=== PATIENT | male | born 1960 | race Caucasian/White ===

== ENCOUNTER 2016-08-01 10:46 | Emergency (ER) | payer BC ==
[2016-08-01 12:02] VITALS: BP 144/94
--- NOTE | 2016-08-01 12:26 | UC ---
Throat Pain/Nasal Scott HPI - HPI Summary HPI Summary: sinus pain and pressure x 2 weeks, + nasal congestion, pnd, cough no fever, no chills - History of Current Complaint Chief Complaint: UCGeneralIllness Stated Complaint: SORE THROAT Time Seen by Provider: 08/01/16 12:19 Hx Obtained From: Patient Onset/Duration: Gradual Onset, Lasting Weeks - 2, Still Present Severity: Moderate Cough: Nonproductive Associated Signs & Symptoms: Positive: Sinus Discomfort, Nasal Discharge. Negative: Dysphagia, FB Sensation, Drooling, Wheezing, Hoarseness, Fever, Rash - Allergies/Home Medications Allergies/Adverse Reactions: Allergies Allergy/AdvReac Type Severity Reaction Status Date / Time No Known Allergies Allergy Verified 05/04/15 15:42 PMH/Surg Hx/FS Hx/Imm Hx Endocrine History Of: Denies: Diabetes, Thyroid Disease Cardiovascular History Of: Denies: Cardiac Disorders, Hypertension Respiratory History Of: Denies: COPD, Asthma GI/ History Of: Denies: Ulcer - Surgical History Surgical History: Yes Surgery Procedure, Year, and Place: hip replacement right , tonsillectomy - Family History Known Family History: Negative: Diabetes - Social History Alcohol Use: Occasionally Substance Use Type: None Smoking Status (MU): Former Smoker Type: Smokeless Tobacco - Immunization History Most Recent Influenza Vaccination: fall Review of Systems Constitutional: Negative Skin: Negative Eyes: Negative ENT: Sore Throat, Ear Ache, Nasal Discharge Respiratory: Cough Cardiovascular: Negative Gastrointestinal: Negative All Other Systems Reviewed And Are Negative: Yes Physical Exam Triage Information Reviewed: Yes Appearance: Well-Appearing, No Pain Distress, Well-Nourished Vital Signs: Initial Vital Signs Temp 98.3 F 08/01/16 11:54 Pulse 71 08/01/16 11:54 Resp 16 08/01/16 11:54 BP 144/94 08/01/16 11:54 Pulse Ox 98 08/01/16 11:54 Vital Signs Reviewed: Yes Eyes: Positive: Conjunctiva Clear ENT: Positive: Normal ENT inspection, Hearing grossly normal, Pharyngeal erythema, Nasal congestion, Nasal drainage, TMs normal Neck exam: Normal Neck: Positive: Supple, Nontender, No Lymphadenopathy Respiratory Exam: Normal Respiratory: Positive: Chest non-tender, Lungs clear, Normal breath sounds Cardiovascular: Positive: RRR, No Murmur, Pulses Normal Skin Exam: Normal Throat Pain/Nasal Course/Dx - Differential Dx/Diagnosis Provider Diagnoses: sinusitis Discharge - Discharge Plan Condition: Stable Disposition: HOME Prescriptions: Amoxicillin/Clavulanate TAB* [Augmentin TAB 875*] 875 mg PO BID #20 tab Patient Education Materials: Sinusitis (ED) Referrals: Macario Noguera MD [Primary Care Provider] - If Needed
== END 2016-08-01 12:30 | disposition home or self-care (01) ==
LOC: UCCORT 10:46
DX: J32.9 Chronic sinusitis, unspecified (principal); Z96.641 Presence of right artificial hip joint; Z87.891 Personal history of nicotine dependence
CPT/HCPCS: 99212; G0463

== ENCOUNTER 2016-11-24 10:32 | Emergency (ER) | payer BC ==
[2016-11-24 10:47] VITALS: BP 143/83
--- NOTE | 2016-11-24 11:01 | UC ---
Throat Pain/Nasal Scott HPI - HPI Summary HPI Summary: Patient presents to the urgent care c/o sore throat, bilateral ear pain, cough, and sinus pressure worsening over two weeks. Pt reports he has been taking Zyrtec and flonase nasal spray but symptoms are getting worse. He states now his nasal discharge is green and mild fever, since yesterday. Patient denies SOB, chest pain, dizziness, N/V/D. - History of Current Complaint Chief Complaint: UCRespiratory Stated Complaint: CONGESTION,SORE THROAT Time Seen by Provider: 11/24/16 10:45 Hx Obtained From: Patient Onset/Duration: Gradual Onset, Lasting Weeks, Still Present Severity: Moderate Pain Intensity: 0 Cough: Productive - due to postnasal drip Associated Signs & Symptoms: Positive: Dysphagia, Sinus Discomfort, Nasal Discharge - green discharge, Fever - mild. Negative: Wheezing, Vomiting, Rash Related History: Seasonal Allergies - Epiglottits Risk Factors Epiglottis Risk Factors: Negative - Allergies/Home Medications Allergies/Adverse Reactions: Allergies Allergy/AdvReac Type Severity Reaction Status Date / Time environmental Allergy Sneezing Uncoded 11/24/16 10:48 Home Medications: Home Medications Cetirizine* [ZyrTEC 10 MG TAB*] 10 mg PO DAILY 11/24/16 [History Confirmed 11/24] Fluticasone NASAL * [Flonase *] 2 spray BOTH NARES DAILY 11/24/16 [History Confirmed 11/24/16] PMH/Surg Hx/FS Hx/Imm Hx Previously Healthy: Yes - Surgical History Surgical History: Yes Surgery Procedure, Year, and Place: hip replacement right , tonsillectomy - Family History Known Family History: Negative: Cardiac Disease, Hypertension, Diabetes - Social History Occupation: Employed Full-time Alcohol Use: Occasionally Substance Use Type: None Smoking Status (MU): Never Smoked Tobacco Type: Smokeless Tobacco - Immunization History Most Recent Influenza Vaccination: 2013 fall Review of Systems Constitutional: Fever - mild at home Skin: Negative Eyes: Negative ENT: Sore Throat, Ear Ache - due to pressure, Nasal Discharge - green Respiratory: Cough - with green phlegm Cardiovascular: Negative Gastrointestinal: Negative Genitourinary: Negative Motor: Negative Neurovascular: Negative Musculoskeletal: Negative Neurological: Negative Psychological: Negative All Other Systems Reviewed And Are Negative: Yes Physical Exam Triage Information Reviewed: Yes Appearance: Well-Appearing, No Pain Distress, Well-Nourished, Obese Vital Signs: Initial Vital Signs Temp 98.2 F 11/24/16 10:43 Pulse 72 11/24/16 10:43 Resp 14 11/24/16 10:43 BP 143/83 11/24/16 10:43 Pulse Ox 98 11/24/16 10:43 Vital Signs Reviewed: Yes Eye Exam: Normal Eyes: Positive: Conjunctiva Clear ENT: Positive: Hearing grossly normal, Pharyngeal erythema, Nasal congestion, Nasal drainage - mild septum deviation with erythematous turbinates with green nasal discharge, TMs normal, Tonsillar swelling. Negative: Tonsillar exudate Dental Exam: Normal Neck exam: Normal Neck: Positive: Supple, Nontender, No Lymphadenopathy Respiratory Exam: Normal Respiratory: Positive: Chest non-tender, Lungs clear, Normal breath sounds Cardiovascular Exam: Normal Cardiovascular: Positive: RRR, No Murmur, Pulses Normal Abdominal Exam: Normal Abdomen Description: Positive: Nontender, No Organomegaly, Soft Bowel Sounds: Positive: Present Musculoskeletal Exam: Normal Musculoskeletal: Positive: Strength Intact, ROM Intact Neurological Exam: Normal Psychological Exam: Normal Skin Exam: Normal Throat Pain/Nasal Course/Dx - Course Course Of Treatment: bacterial sinusitis:Patient c/o sore throat, bilateral ear pain, cough, and sinus pressure worsening over two weeks. ENT: Positive: Hearing grossly normal, Pharyngeal erythema, Nasal congestion, Nasal drainage - mild septum deviation with erythematous turbinates with green nasal discharge, TMs normal, Tonsillar swelling. Negative: Tonsillar exudate. Patient PMH of sesonal allergies taking Zyrtec and flonase to alleviate symptoms. Pt Rx Amoxicillin 875mg. Pt advised to take full course of antibiotics and increase fluid intake - Differential Dx/Diagnosis Differential Diagnosis/HQI/PQRI: Laryngitis, Otitis Media, Pharyngitis, Sinusitis, Tonsillitis, URI Provider Diagnoses: bacterial sinusitis Discharge - Discharge Plan Condition: Stable Disposition: HOME Prescriptions: Amoxicillin (*) [Amoxicillin 875 MG (*)] 875 mg PO BID #20 tab Patient Education Materials: Sinusitis (ED) Referrals: Macario Noguera MD [Primary Care Provider] - Additional Instructions: Please continue taking the flonase and Zyrtec and take antibiotic as instructed. Increase fluid intake and rest. If symptoms worsen please return to the Urgent care or PCP for further evaluation and treatment
== END 2016-11-24 11:15 | disposition home or self-care (01) ==
LOC: UCCORT 10:32
DX: J32.9 Chronic sinusitis, unspecified (principal); Z96.641 Presence of right artificial hip joint; E66.9 Obesity, unspecified
CPT/HCPCS: 99212; G0463

== ENCOUNTER 2017-04-13 14:13 | Emergency (ER) | payer BC ==
[2017-04-13 15:01] VITALS: BP 121/72
--- NOTE | 2017-04-13 15:31 | UC ---
Throat Pain/Nasal Scott HPI - HPI Summary HPI Summary: 56 year old female presents with complains of sinus congestion. - History of Current Complaint Chief Complaint: UCRespiratory Stated Complaint: SINUS COMPLAINT Time Seen by Provider: 04/13/17 15:31 Hx Obtained From: Patient Onset/Duration: Sudden Onset Severity: Moderate Pain Scale Used: 0-10 Numeric - 5 Cough: Nonproductive - Allergies/Home Medications Allergies/Adverse Reactions: Allergies Allergy/AdvReac Type Severity Reaction Status Date / Time environmental Allergy Sneezing Uncoded 04/13/17 15:01 Home Medications: Home Medications Loratadine & Pseudoephedrine [Claritin-D 12 Hour 5-120 mg] 1 tab PO DAILY [History Confirmed 04/13/17] PMH/Surg Hx/FS Hx/Imm Hx Previously Healthy: Yes - Surgical History Surgical History: Yes Surgery Procedure, Year, and Place: hip replacement right , tonsillectomy - Family History Known Family History: Negative: Cardiac Disease, Hypertension, Diabetes - Social History Alcohol Use: Occasionally Substance Use Type: None Smoking Status (MU): Never Smoked Tobacco Type: Smokeless Tobacco - Immunization History Most Recent Influenza Vaccination: fall Review of Systems Constitutional: Negative Skin: Negative Eyes: Negative ENT: Sore Throat, Nasal Discharge, Sinus Congestion, Sinus Pain/Tenderness Respiratory: Negative Cardiovascular: Negative Gastrointestinal: Negative Genitourinary: Negative Motor: Negative Neurovascular: Negative Musculoskeletal: Negative Neurological: Negative Psychological: Negative All Other Systems Reviewed And Are Negative: Yes Physical Exam Triage Information Reviewed: Yes Vital Signs: Initial Vital Signs Temp 36.4 C 04/13/17 14:57 Pulse 82 04/13/17 14:57 Resp 17 04/13/17 14:57 BP 121/72 04/13/17 14:57 Pulse Ox 98 04/13/17 14:57 Vital Signs Reviewed: Yes Eye Exam: Normal ENT: Positive: Pharyngeal erythema, Nasal congestion, Nasal drainage Dental Exam: Normal Neck exam: Normal Neck: Positive: 1 Respiratory Exam: Normal Cardiovascular Exam: Normal Abdominal Exam: Normal Musculoskeletal Exam: Normal Neurological Exam: Normal Psychological Exam: Normal Skin Exam: Normal Throat Pain/Nasal Course/Dx - Differential Dx/Diagnosis Provider Diagnoses: pharyngitis. sinusitis Discharge - Discharge Plan Condition: Stable Disposition: HOME Prescriptions: Amoxicillin PO (*) [Amoxicillin 875 MG (*)] 875 mg PO BID #20 tab Patient Education Materials: Sinusitis (ED) Referrals: Macario Noguera MD [Primary Care Provider] -
== END 2017-04-13 15:42 | disposition home or self-care (01) ==
LOC: UCCORT 14:13
DX: J02.9 Acute pharyngitis, unspecified (principal); J32.9 Chronic sinusitis, unspecified
CPT/HCPCS: 99212; G0463

== ENCOUNTER 2017-05-20 08:54 | Emergency (ER) | payer BC ==
[2017-05-20 11:54] VITALS: BP 138/98
--- NOTE | 2017-05-20 13:55 | UC ---
Throat Pain/Nasal Scott HPI - HPI Summary HPI Summary: pt p/w c/o st, sinus congestion/rueda/pain, ear fullness, productive cough(non- bloody) that interferes with sleep. onset [address] does not interfer with eating/drinking. denies f/c, n/v/d/abd pain. - History of Current Complaint Chief Complaint: UCGeneralIllness Stated Complaint: SORE THROAT Time Seen by Provider: 05/20/17 11:08 Hx Obtained From: Patient Onset/Duration: Gradual Onset Severity: Moderate Pain Intensity: 5 - throat Pain Scale Used: 0-10 Numeric Cough: Productive Associated Signs & Symptoms: Positive: Dysphagia - pain, Sinus Discomfort, Nasal Discharge. Negative: FB Sensation, Drooling, Wheezing, Hoarseness, Fever , Vomiting, Rash - Allergies/Home Medications Allergies/Adverse Reactions: Allergies Allergy/AdvReac Type Severity Reaction Status Date / Time environmental Allergy Sneezing Uncoded 05/20/17 10:19 Home Medications: Home Medications Saline NASAL SPRAY 0.65%* [Sodium Chloride 0.65% Nasal [place]*] 1 spray BOTH NARES Q4H PRN 05/20/17 [History Confirmed 05/20/17] PMH/Surg Hx/FS Hx/Imm Hx Previously Healthy: Yes - Surgical History Surgical History: Yes Surgery Procedure, Year, and Place: Right ISABELLA, ~2006, [place]; Tonsillectomy, ~ 1975, [place] - Family History Known Family History: Negative: Cardiac Disease, Hypertension, Diabetes - Social History Occupation: Employed Full-time Alcohol Use: Occasionally Substance Use Type: None Smoking Status (MU): Never Smoked Tobacco Type: Smokeless Tobacco - Immunization History Most Recent Influenza Vaccination: March 2017 Review of Systems Constitutional: Negative Skin: Negative Eyes: Negative ENT: Sore Throat, Ear Ache, Nasal Discharge, Sinus Congestion, Sinus Pain/ Tenderness Respiratory: Cough Cardiovascular: Negative Gastrointestinal: Negative Musculoskeletal: Negative Neurological: Headache - sinus All Other Systems Reviewed And Are Negative: Yes Physical Exam Triage Information Reviewed: Yes Appearance: Well-Appearing, No Pain Distress, Obese Vital Signs: Initial Vital Signs Temp 98.2 F 05/20/17 10:17 Pulse 70 05/20/17 10:17 Resp 16 05/20/17 10:17 BP 149/96 05/20/17 10:17 Pulse Ox 100 05/20/17 10:17 Vital Signs Reviewed: Yes Eyes: Positive: Conjunctiva Clear. Negative: Discharge ENT: Positive: Hearing grossly normal, Pharyngeal erythema, Nasal congestion, Nasal drainage, TMs normal, Sinus tenderness, Uvula midline. Negative: Tonsillar swelling, Tonsillar exudate, Trismus, Muffled voice, Hoarse voice Neck: Positive: Supple Respiratory: Positive: Lungs clear, Normal breath sounds, No respiratory distress, No accessory muscle use, Expiration - prolonged Cardiovascular: Positive: RRR, No Murmur Musculoskeletal Exam: Normal Neurological: Positive: Alert, Muscle Tone Normal Psychological: Positive: Age Appropriate Behavior Skin Exam: Normal Throat Pain/Nasal Course/Dx - Differential Dx/Diagnosis Differential Diagnosis/HQI/PQRI: Otitis Media, Pharyngitis, Sinusitis, Tonsillitis, URI Provider Diagnoses: sinusitis Discharge - Discharge Plan Condition: Stable Disposition: HOME Prescriptions: Albuterol HFA INHALER* [Ventolin HFA Inhaler*] 2 puff INH Q4H PRN #1 mdi PRN Reason: Sob/Wheezing Amoxicillin/Clavulanate TAB* [Augmentin TAB 875*] 875 mg PO BID #20 tab Benzonatate CAP* [Tessalon 100 MG CAP*] 100 mg PO TID #30 cap guaiFENesin ER TAB [Mucinex*] 600 mg PO BID PRN #1 box PRN Reason: Cough Guaifenesin-Codeine [Guaiatussin AC] 5 - 10 ml PO BEDTIME PRN #100 syp MDD 10 PRN Reason: Cough Patient Education Materials: Sinusitis (ED), Bronchospasm (ED) Referrals: Macario Noguera MD [Primary Care Provider] - If Needed Additional Instructions: TRY USING THE NETTI POT IN THE MORNINGS DISCUSSED. YOU MUST ALWAYS USE CLEAN WATER. REMEMBER, POSTURE IS AN IMPORTANT FACTOR IN SINUS DRAINAGE. MOVE YOUR NECK, BREATHE. INHALED BRONCHODILATORS: You have received a prescription for an inhaled bronchodilator -- a medication which stimulates the airways in the lung to dilate. This improves the flow of air in asthma, bronchitis, and emphysema. These medicines have some similarity to adrenaline, and can cause similar side effects: shakiness, racing heart, and a sense of nervousness. These side effects decrease with time. Contact your doctor if these side effects are severe. Do not over-use the medicine. Too-frequent use of the inhaler may make it ineffective. Call your doctor if the inhaler is not controlling your symptoms at the prescribed doses. COUGH-SUPPRESSANT & EXPECTORANT MEDICATION: You are to use a cough medication as needed for relief of symptoms. This medicine is a combination of an expectorant (to make the mucous thinner and more easily "coughed up") and a cough suppressant (to reduce the frequency of coughing). The cough-suppressant medicine is related to narcotics. You may experience mild nausea and sleepiness. Some patients who are very sensitive to narcotics may have stomach pain from this medicine. Taking the medicine with food reduces these side effects. Do not drive or work with machinery until you know how this medicine affects you. The expectorant should have no side effects. Iodine-containing expectorants (such as organidin) should not be taken by persons with active thyroid disease unless approved by your doctor. Call the doctor if you develop shortness of breath, hives, rash, itching, lightheadedness, or severe nausea and vomiting. EXPECTORANT MEDICATION: WE SENT IN A SCRIPT FOR MUCINEX SO THAT IT IS EASIER FOR YOU TO PICK THE RIGHT MED AT THE PHARMACY. HOWEVER, YOU CAN ALSO GO TO THE [facility] AND BUY PLAIN GUAIFENESIN WITHOU BINDERS OR FILLERS. An expectorant medicine has been prescribed. This type of drug makes mucous thinner, helping the sinuses, nose, and bronchial tubes to remain free of pus and mucous. Expectorants make a cough less severe and more comfortable, and help infected sinuses drain. In general, antihistamines defeat the purpose of the expectorant by making mucous thicker. They should be avoided unless specifically recommended by your physician. TESSALON PERLES: You have received a prescription for Tessalon Perles (benzonatate). This is a non-narcotic medicine for relief of cough. It usually works in about 15- 20 minutes and lasts around four hours. Tessalon Perles should be swallowed. They should not be chewed or dissolved in the mouth (this can produce temporary numbing of the mouth and choking can occur). If you develop any adverse effects such as wheezing, shortness of breath, hives, rash, itching, or lightheadedness, please return at once. ANTIBIOTICS ARE NOT CURRENTLY INDICATED FOR YOUR CONDITION. hOWEVER, IF YOUR SYMPTOMS WORSEN OR PERSIST FOR OVER THE NEXT 3-5 DAYS, YOU CAN TAKE THE FOLLOWING MEDICATION: AUGMENTIN: Augmentin is a mixture of amoxicillin and clavulanate. Amoxicillin is a member of the penicillin family. It covers the germs likely to cause ear, bronchial, and urinary infections better than plain penicillin. The addition of clavulanate allows it to cover staph infections of the skin, as well as resistant cases of ear and sinus infections. Your physician has chosen Augmentin for you because of the special nature of your situation. Augmentin is best taken with meals. Nausea after taking the medication is rare, but can occur. Diarrhea can occur, particularly in small children. Vaginal yeast infections, and oral thrush in infants are also common. Contact your physician if these problems occur. Allergy to penicillins is common. If you have had an allergic reaction to any drug of the penicillin family, you should never take any other penicillin. Notify your doctor at once if you develop hives, shortness of breath, swelling, or faintness. ANYTIME YOU TAKE AN ANTIBIOTIC, IT IS IMPORTANT TO REPLENISH THE BODY'S SUPPLY OF "GOOD BACTERIA." YOU CAN GET GOOD BACTERIA FROM HIGH QUALITY CULTURED FOODS SUCH LOCAL [employer], S[employer] KRA[employer], [employer], NATURALLY FERMENTED PICKLES AND PROBIOTIC DRINKS. YOU CAN ALSO GET GOOD BACTERIA FROM A PROBIOTIC SUPPLEMENT. YOUR BLOOD PRESSURE WAS ELEVATED AT THIS VISIT. THAT DOES NOT MEAN THAT YOU HAVE HYPERTENSION. HOWEVER, WE RECCOMEND FOLLOW UP WITH YOUR PCP FOR FURTHER EVALUATION THIS WEEK.
== END 2017-05-20 12:09 | disposition home or self-care (01) ==
LOC: UCCORT 08:54
DX: J32.9 Chronic sinusitis, unspecified (principal); J02.9 Acute pharyngitis, unspecified; E66.9 Obesity, unspecified
CPT/HCPCS: 87651; 99212; G0463

== ENCOUNTER 2017-10-10 12:09 | Emergency (ER) | payer BC ==
[2017-10-10 12:27] VITALS: BP 154/104
--- NOTE | 2017-10-10 12:58 | UC ---
Throat Pain/Nasal Scott HPI - HPI Summary HPI Summary: Sinus pressure for about two weeks. He gets sinusitis two times a year. he has been trying netti pots without much help. NO fever or ear pain. He tried claritin d today and feels "racy." He normally has controlled BP. - History of Current Complaint Chief Complaint: UCRespiratory Stated Complaint: SINUSES Time Seen by Provider: 10/10/17 12:46 Hx Obtained From: Patient Onset/Duration: Gradual Onset, Lasting Weeks Severity: Moderate Pain Intensity: 4 Cough: None Associated Signs & Symptoms: Positive: Sinus Discomfort. Negative: Dysphagia, FB Sensation, Drooling, Wheezing, Hoarseness, Fever, Vomiting, Rash - Allergies/Home Medications Allergies/Adverse Reactions: Allergies Allergy/AdvReac Type Severity Reaction Status Date / Time environmental Allergy Sneezing Uncoded 10/10/17 12:21 PMH/Surg Hx/FS Hx/Imm Hx Previously Healthy: No - denies HTN. - Surgical History Surgical History: Yes Surgery Procedure, Year, and Place: Right ISABELLA, ~2006, [place]; Tonsillectomy, ~ 1975, [place] - Family History Known Family History: Negative: Cardiac Disease, Hypertension, Diabetes - Social History Alcohol Use: Occasionally Substance Use Type: None Smoking Status (MU): Never Smoked Tobacco Type: Smokeless Tobacco - Immunization History Most Recent Influenza Vaccination: March 2017 Review of Systems ENT: Sinus Congestion, Sinus Pain/Tenderness All Other Systems Reviewed And Are Negative: Yes Physical Exam Triage Information Reviewed: Yes Appearance: Well-Appearing, No Pain Distress, Obese Vital Signs: Initial Vital Signs Temp 98.5 F 10/10/17 12:21 Pulse 84 10/10/17 12:21 Resp 16 10/10/17 12:21 BP 154/104 10/10/17 12:21 Pulse Ox 96 10/10/17 12:21 Vital Signs Reviewed: Yes Eyes: Positive: Conjunctiva Clear. Negative: Conjunctiva Inflamed ENT: Positive: Hearing grossly normal, Pharynx normal, Nasal congestion, TMs normal, Sinus tenderness, Uvula midline. Negative: Pharyngeal erythema, TM bulging, TM dull, TM red, Tonsillar swelling, Tonsillar exudate, Trismus Neck: Positive: Supple, Nontender, No Lymphadenopathy Respiratory: Positive: Lungs clear, Normal breath sounds, No respiratory distress, No accessory muscle use. Negative: Respiratory distress, Decreased breath sounds, Crackles, Rhonchi, Stridor, Wheezing Cardiovascular: Positive: No Murmur, Pulses Normal, Brisk Capillary Refill. Negative: Tachycardia Abdomen Description: Positive: No Organomegaly, Soft. Negative: Distended, Guarding Musculoskeletal: Positive: Strength Intact, ROM Intact, No Edema Neurological: Positive: Alert, Muscle Tone Normal. Negative: Fatigued Skin: Negative: rashes Throat Pain/Nasal Course/Dx - Course Assessment/Plan: He promises to f/u and make sure his BP goes back to normal. This may be the otc meds. - Differential Dx/Diagnosis Provider Diagnoses: HTN. sinusitis. Discharge - Sign-Out/Discharge Documenting (check all that apply): Discharge - Discharge Plan Condition: Good Disposition: HOME Prescriptions: Amoxicillin PO (*) [Amoxicillin 875 MG (*)] 875 mg PO BID #20 tab Patient Education Materials: Sinusitis (ED) Referrals: Macario Noguera MD [Primary Care Provider] - Additional Instructions: Continue Netti pots. Make sure your Blood pressure returns to normal. - Billing Disposition and Condition Condition: GOOD Disposition: HOME
== END 2017-10-10 12:58 | disposition home or self-care (01) ==
LOC: UCCORT 12:09
DX: I10 Essential (primary) hypertension (principal); J32.9 Chronic sinusitis, unspecified
CPT/HCPCS: 99212; G0463

== ENCOUNTER 2019-02-08 09:02 | Emergency (ER) | payer BC ==
[2019-02-08 09:23] VITALS: BP 148/104
--- NOTE | 2019-02-08 09:54 | UC ---
General HPI - HPI Summary HPI Summary: pt has been having pain to his R great toe at the IP joint for about 1 month. last pm, pt noted pain and swelling round the toenail. he took some Ibuprofen which is helping. no hx injury to that toe or gout. pt did cut his toenail along the side where it swelled. - History of Current Complaint Chief Complaint: UCLowerExtremity Stated Complaint: RIGHT GREAT TOE PAIN Time Seen by Provider: 02/08/19 09:41 Hx Obtained From: Patient Pain Intensity: 7 Associated Signs & Symptoms: Negative: Fever, Weakness - Allergy/Home Medications Allergies/Adverse Reactions: Allergies Allergy/AdvReac Type Severity Reaction Status Date / Time environmental Allergy Sneezing Uncoded 02/08/19 09:28 PMH/Surg Hx/FS Hx/Imm Hx Previously Healthy: Yes - Surgical History Surgical History: Yes Surgery Procedure, Year, and Place: Right ISABELLA, ~2006, [place]; Tonsillectomy, ~ 1975, [place] - Family History Known Family History: Negative: Cardiac Disease, Hypertension, Diabetes - Social History Lives: With Family Alcohol Use: Occasionally Substance Use Type: None Smoking Status (MU): Never Smoked Tobacco Type: Smokeless Tobacco - Immunization History Most Recent Influenza Vaccination: March 2017 Review of Systems All Other Systems Reviewed And Are Negative: No Constitutional: Negative: Fever, Chills Musculoskeletal: Negative: Decreased ROM Neurological: Negative: Weakness, Paresthesia, Numbness Physical Exam Triage Information Reviewed: Yes Appearance: Well-Appearing Vital Signs: Initial Vital Signs Temp 98.0 F 02/08/19 09:16 Pulse 73 02/08/19 09:16 Resp 16 02/08/19 09:16 BP 148/104 02/08/19 09:16 Pulse Ox 97 02/08/19 09:16 Vital Signs Reviewed: Yes Cardiovascular: Positive: RRR Musculoskeletal: Positive: Other: - RLE: hip, knee, achilles and ankle without swelling or tenderness and rom is intact. Foot= great toe has mild swelling and slightly tender over the medial 1st IP joint without erythema or warmth. active and passive rom intact. medial side of toenail with mild erythema, swelling and tenderness but not fluctuant. medial toenail trimmed at angle. Subungual hematome 2nd toe(old). rest of foot is unremarkable. foot has full s/v/m function. Neurological: Positive: Alert Psychological: Positive: Age Appropriate Behavior Skin Exam: Normal Diagnostics - Radiology No standard instances Radiology Interpretation Completed By: Radiologist - IMPRESSION: 1. OSTEOARTHRITIS. 2. 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 Course/Dx - Differential Dx - Multi-Symptom Differential Diagnoses: Other - no concern for fx or dislocation. pt has 2 separate issues, one is a paronychia which i will tx with keflex and warm soaks. the seconday is an arthralgia at the IP joint of great toe. not an over gout but gout and pseudogout are both possible. will tx with an NSAID and close f/u for both. no concern for septic joint. - Diagnoses Provider Diagnosis: Paronychia of great toe, right, Osteoarthritis of toe, Elevated BP without diagnosis of hypertension Discharge - Sign-Out/Discharge Documenting (check all that apply): Patient Departure All imaging exams completed and their final reports reviewed: Yes - Discharge Plan Condition: Stable Disposition: HOME Prescriptions: Cephalexin CAP* [Keflex CAP*] 500 mg PO TID 7 Days #21 cap Naproxen [Naprosyn 500 mg tab] 500 mg PO BID 5 Days #10 tablet Patient Education Materials: Paronychia (ED), Gout (ED), Pseudogout (ED) Referrals: Pippa Kirk MD [Primary Care Provider] - Additional Instructions: FOLLOW UP WITH YOUR DOCTOR THIS WEEK FOR A RECHECK AND REPEAT BLOOD PRESSURE. START THE NAPROXEN TONIGHT. - Billing Disposition and Condition Condition: STABLE Disposition: Home - Attestation Statements Provider Attestation: I was available for consult. This patient was seen by the KRISTA. The patient was not presented to, seen by, or examined by me. -Olu
== END 2019-02-08 10:28 | disposition home or self-care (01) ==
LOC: UCCORT 09:02
DX: L03.031 Cellulitis of right toe (principal); M19.071 Primary osteoarthritis, right ankle and foot; R03.0 Elevated blood-pressure reading, without diagnosis of hypertension
CPT/HCPCS: 99212; G0463